=== PATIENT | male | born 1980 | race Two or more races ===

== ENCOUNTER 2024-10-05 10:42 | Day surgery (SDC) | payer MEDICAID ==
[2024-10-03 10:12] LABS: Basophils # (auto) 0 10 ^3/uL (0-0.2); Basophils % (auto) 0.4 % (0.0-2.0); Eosinophils # (auto) 0.1 10 ^3/uL (0-0.8); Eosinophils % (auto) 1.4 % (0.0-7.0); Hematocrit 40.8 % (41.0-53.0); Hemoglobin 14.5 g/dL (13.5-17.5); Lymphocytes # (auto) 3.5 10 ^3/uL (0.4-5.4); Lymphocytes % (auto) 35.1 % (10.0-50.0); Mean Corpuscular Hemoglobin 30.3 pg (28.0-32.0); Mean Corpuscular Hgb Conc. 35.6 g/dL (32.0-36.0); Mean Corpuscular Volume 85.2 fL (80.0-100.0); Monocytes # (auto) 0.5 10 ^3/uL (0-1.3); Monocytes % (auto) 5.1 % (0.0-12.0); Neutrophils # (auto) 5.8 10 ^3/uL (1.6-8.6); Nucleated Red Blood Cells % 0.1 %; Platelet Count (auto) 216 10^3/uL (140-450); Red Blood Cells 4.79 10^6/uL (4.5-5.90); Red Cell Distribution Width 13.5 % (11.8-14.3)
[2024-10-03 10:20] LABS: Urine Bacteria None Seen /hpf (None Seen); Urine Blood Negative /uL (Negative); Urine Clarity Clear (Clear); Urine Color Yellow (Yellow); Urine Protein, UAD 1+ (Negative); Urine Specific Gravity 1.026 (1.001-1.035); Urine Squamous Epithelial Cell FEW /hpf (<5); Urine Urobilinogen Normal (Negative); Urine WBC < 1 /HPF (0-3)
[2024-10-03 10:28] LABS: INR 1.08 (0.9-1.15); Partial Thromboplastin Time 28.4 SEC (24.5-34.5); Prothrombin Time 11.4 sec (9.3-11.8)
[2024-10-03 10:43] LABS: Alkaline Phosphatase 96 U/L (46-116); Anion Gap 9 (5-15); BUN/Creatinine Ratio 12.6 (10.0-20.0); Bilirubin, Total 0.4 mg/dL (0.2-1.0); Blood Urea Nitrogen 12 mg/dL (9-23); Calcium 10.2 mg/dL (8.7-10.4); Carbon Dioxide 28 mmol/L (20-31); Chloride 101 mmol/L (98-107); Sodium 138 mmol/L (136-145); Total Protein 7.6 g/dL (5.7-8.2)
[2024-10-03 10:44] LABS: Alanine Aminotransferase 103 U/L (7-40); Albumin 5.1 g/dL (3.2-4.8); Aspartate Aminotransferase 69 U/L (13-40); Glucose 185 mg/dL (74-106); Potassium 3.1 mmol/L (3.5-5.1)
[~2024-10-05] VITALS: Ht 165.1 cm; Wt 99.8 kg
[~2024-10-05 10:42] MED LIST: ASPI-543 PO; ATEN-60 PO; CHLO25TA2 PO; GEMF-66 PO; LISI-275 PO; METF-370 PO
[2024-10-05] MEDS ORDERED: PROPOFOL 10 MG/ML 20 ML IV ONE ×2 (12:56→13:29)
[2024-10-05] MEDS ORDERED: LIDOCAINE 2%HCL (LOCAL ANESTH.) INJ 10ml MDV ONE (12:56)
[2024-10-05 13:49] VITALS: PULSE 71; RESP 12; TEMP 98.3; O2SAT 99
[2024-10-05] MEDS ORDERED: ePHEDrine SULFATE 50 MG/ML AMP IV PRN (14:00)
[2024-10-05] MEDS ORDERED: FLUMAZENIL 0.1 MG/ML INJ 10ML MDV IV PRN (14:00)
[2024-10-05] MEDS ORDERED: HYDROmorphone HCL 2 MG/ML VL/or syr IV PRN (14:00)
[2024-10-05] MEDS ORDERED: hydrALAZINE HCL 20 MG/ML VL IV PRN (14:00)
[2024-10-05] MEDS ORDERED: fentaNYL CITRATE 100 MCG/2 ML VL IV PRN (14:00)
[2024-10-05] MEDS ORDERED: NALOXONE HCL 0.4 MG/ML VIAL IV PRN (14:00)
[2024-10-05] MEDS ORDERED: ONDANSETRON HCL 4 MG/2 ML VIAL IV PRN (14:00)
[2024-10-05 14:19] VITALS: BP 133/90; PULSE 70; RESP 16; O2SAT 97
--- NOTE | 2024-10-05 14:45 | DVHOP2 ---
Operative Report DATE OF OPERATION: 10/05/24 PROCEDURE: Upper Endoscopy with biopsy. PREOPERATIVE INDICATION: The patient is a 44 -year-old male undergoing endoscopy for Hemoccult-positive stools POSTOPERATIVE DIAGNOSES: 1. Mild gastritis with some hyperemia erythema PROCEDURE PERFORMED BY: Yu Krishnamurthy GI NURSE: Alem SCOPE: Olympus videoendoscope. ASA CLASS: 3. PREOPERATIVE MEDICATIONS: Mac sedation, Will Murphy PROCEDURE IN DETAIL: After obtaining an informed consent, the patient was placed on left lateral decubitus position. The patient was then sedated with the above medications. A bite block was placed between his teeth. The endoscope was then passed through the oropharynx, into the esophagus, and through the stomach and pylorus up to the second and third part of the duodenum. The endoscope was then withdrawn. The 2nd and 3rd part of the duodenum and the duodenal bulb were normal. Duodenal biopsies were obtained The pre-pyloric area antrum and body showed mild gastritis with some hyperemia erythema. Gastric biopsies were obtained. On retroflexion the fundus cardia and angularis were normal. The endoscope was then withdrawn into the distal esophagus. Patient had no significant hiatal hernia and no esophagitis. The remaining distal and proximal esophagus and oropharynx were unremarkable The patient tolerated the procedure well without difficulty. COMPLICATIONS : None SPECIMENS: Duodenal biopsies Gastric biopsies DISPOSITION: Stable D/C to home PLAN: 1. Await for biopsy result 2. Will place pt on Protonix 40 mg p.o. daily 3. Resume GI soft diet advance as tolerated 4. Outpatient follow up with me in 4-6 weeks or as needed YU KRSIHNAMURTHY MD Oct 05, 2024 14:45
--- NOTE | 2024-10-05 14:49 | DVHOP2 ---
Operative Report DATE OF OPERATION: 10/05/24 PROCEDURE: Colonoscopy with hot snare polypectomy. PREOPERATIVE INDICATION: The patient is a 44 -year-old male undergoing colonoscopy for colon cancer screening with Hemoccult-positive stools x2 POSTOPERATIVE DIAGNOSES: 1. Patient had three one less than 1 cm benign-appearing ascending colon polyps that were seen and removed via hot snare polypectomy and the specimens were retrieved 2. The patient had two less than 1 cm benign-appearing transverse colon polyps that were seen and removed by hot snare polypectomy and the specimens were retrieved 3. Patient had a 1.5 cm benign-appearing descending colon polyp that was seen and removed by hot snare polypectomy and the specimens were retrieved 4. Patient had three 5-15 mm benign-appearing sigmoid polyps were seen and removed by hot snare polypectomy and the specimens were retrieved 5. Trace to 1+ internal hemorrhoids otherwise normal examination up to the cecum and terminal ileum PROCEDURE PERFORMED BY: Yu Krishnamurthy M.D. SCOPE: Olympus videocolonoscope. ASA CLASS: 3 PREOPERATIVE MEDICATIONS: Will Ruiz PROCEDURE IN DETAIL: After obtaining an informed consent, the patient was placed on left lateral decubitus position. He was then sedated with the above medications. A rectal examination was performed that was normal. The colonoscope was then passed through the anus into the rectosigmoid and through the descending, transverse, and ascending colon up to the cecum with visualization of the appendiceal orifice, base of the cecum and the ileocecal valve. The colonoscope was then withdrawn. The distal 5 cm of the terminal ileum were normal The patient had three less than 1 cm benign-appearing ascending colon polyps which were seen and removed by hot snare polypectomy The patient had two less than 1 cm benign-appearing transverse colon polyps were seen and removed via hot snare polypectomy and the specimens were retrieved Patient had a 1.5 cm benign-appearing descending colon polyp at about 50 cm above the anal verge. This was removed by snare polypectomy and the specimens were retrieved Patient had three 5-15 mm benign-appearing sigmoid polyps that were seen and removed by hot snare polypectomy and the specimens were retrieved On retroflexion and straight on view he had trace to 1+ internal hemorrhoids The patient tolerated the procedure well without difficulty. WITHDRAWAL TIME: 10 minutes QUALITY OF THE PREP: Vincent Bowel Prep score: 9. COMPLICATIONS : None SPECIMENS: Ascending colon polyps Transverse colon polyp Descending colon polyp Sigmoid polyps DISPOSITION: Stable D/C to home PLAN: 1. Repeat colonoscopy base on biopsy result likely in 2-3 years 2. Resume GI soft diet advance as tolerated 3. Hold aspirin NSAIDs blood thinners for one week 4. Outpatient follow up with me in 2-4 weeks to review results and discuss further management YU KRISHNAMURTHY MD Oct 05, 2024 14:49
== END 2024-10-05 14:32 | disposition home or self-care (01) ==
LOC: GI 10:42
PROVIDERS: ATTEND Internal Medicine Gastroenterology
DX: R19.5 Other fecal abnormalities (principal); D12.2 Benign neoplasm of ascending colon; D12.3 Benign neoplasm of transverse colon; D12.4 Benign neoplasm of descending colon; D12.5 Benign neoplasm of sigmoid colon; K64.0 First degree hemorrhoids; K29.50 Unspecified chronic gastritis without bleeding; B96.81 Helicobacter pylori [H. pylori] as the cause of diseases classified elsewhere; E78.00 Pure hypercholesterolemia, unspecified; E11.9 Type 2 diabetes mellitus without complications; I10 Essential (primary) hypertension; Z79.899 Other long term (current) drug therapy
CPT/HCPCS: 36415; 43239; 45385; 80053; 81001; 85025; 85610; 85730; 88305; 88312; 88342; J2003; J2704; J7030